=== PATIENT | female | born 1950 | race Caucasian/White ===

== ENCOUNTER 2017-03-08 17:28 | Inpatient (IN) ==
[2017-03-08] MEDS ORDERED: VECURONIUM 10 MG VIAL IV ONE (17:32)
[2017-03-08] MEDS ORDERED: VECURONIUM 10 MG VIAL IV STA (17:41)
--- NOTE | 2017-03-08 18:01 | Emergency Department Note ---
Arrival - Arrival Chief Complaint: Overdose ED Nursing Triage Note: pt had been fighting with boyfriend for the last day and half. pt was found today with 2 large bottles of wine empty and a large bottle of norcos with half missing. ems intubated pt with a 7.0 et tube 22 at lip Mode of Arrival: Stretcher Limitations: Altered Mental Status Source: EMS Time Seen by Provider: 03/08/17 17:50 - History of Present Illness HPI Narrative: The patient was apparently found unresponsive by her . There were 3 empty bottles of wine and it appears she also took at least 45 [place] tens. Apparently they have been fighting for the past couple of days. She has a history of prior suicidal ideation but no actual attempts known. EMS found patient with agonal respirations and unresponsive. She was intubated at the scene. Two doses of Narcan were given. The patient is on the ventilator when I see her. Allergies/Adverse Reactions: Allergies Allergy/AdvReac Type Severity Reaction Status Date / Time No Known Allergies Allergy Unverified 03/08/17 18:26 Review of System - Review of System ROS unobtainable: due to mental status Medical,Surgical,& Family Hx - Medical History Psychological: History of: Anxiety Disorders, Depression - Social History Smoking Status: Unknown if ever smoked Frequency of Alcohol Use: Unknown Type of Drug Use: Unknown Exam Physical Examination: GENERAL: Unresponsive. On ventilator. HEENT: Normocephalic and atraumatic. PERRLA. There is no nasal drainage. No pharyngeal erythema or exudate. [address] 22 at the lips. NECK: Normal inspection. Supple. No lymphadenopathy. LUNGS: On ventilator. Lung sounds clear and equal bilaterally. HEART: Regular rate and rhythm. ABDOMEN: Soft, nondistended with normal bowel sounds. SKIN: Color normal. Warm and dry. EXTREMITIES: No obvious deformity or trauma. No pedal edema. NEUROLOGICAL/PSYCHIATRIC: Unresponsive, on ventilator. Vital Signs: Vital Signs Temperature 97.0 F L 03/08/17 17:38 Pulse Rate 83 03/08/17 17:38 Respiratory Rate 10 L 03/08/17 18:20 Blood Pressure 102/61 03/08/17 17:38 O2 Sat by Pulse Oximetry 99 03/08/17 17:29 Course - Reevaluation(s) Reevaluation #1: The patient was discussed with the hospitalist service who will see her and admit. All lab work is pending. Time: 18:00 Results - Labs CBC & BMP: 03/08/17 17:55 03/08/17 17:55 Lab Results: I have reviewed the patients labs Labs: Laboratory Tests 03/08/17 03/08/17 03/08/17 17:55 17:55 17:55 ABG pH ABG pCO2 ABG pO2 ABG HCO3 ABG Total CO2 ABG O2 Saturation ABG Base Excess FiO2 Troponin I < 0.015 Ur Specific [place] 1.008 Urine RBC <1 Urine WBC 1 Urine Opiates Screen Acetaminophen U Benzodiazepines Scrn Serum Alcohol 233 03/08/17 03/08/17 03/08/17 17:55 17:55 18:31 ABG pH 7.290 L ABG pCO2 45.8 ABG pO2 380.0 H ABG HCO3 20.7 ABG Total CO2 20.4 L ABG O2 Saturation 99.8 ABG Base Excess -4.5 L FiO2 100.00 Troponin I Ur Specific [place] Urine RBC Urine WBC Urine Opiates Screen Positive H Acetaminophen 54.4 H U Benzodiazepines Scrn Positive H Serum Alcohol - Impressions EKG shows a normal sinus rhythm at 78 with flipped T waves in V1 and V2. Chest x-ray shows an ET tube 2 cm above the isidra with chronic right hemidiaphragm elevation and mild atelectasis. CT of the head shows no acute cranial abnormality. Disposition Clinical Impression: Drug overdose, Suicide attempt by multiple drug overdose Disposition: Still a Patient Condition: Critical Time of Disposition: 18:56
--- NOTE | 2017-03-08 18:13 | Hospitalist History & Physical ---
Assessment and Plan (1) Drug overdose Status: Acute Assessment and plan: We will admit and hydrate and start mucomyst per pharmacy recommendation. We will aggressively hydrate for pressure support and monitor output carefully. It is unsure exactly how many pills were ingested. We will obtain serial acetaminophen levels and LFT for trends. Current Visit: Yes History of Present Illness Chief complaint: drug overdose History of present illness: This is a very unfortunate 66 year old female that presented to the ED this afternoon per EMS for an apparent intentional drug overdose. The patient arrived intubated per EMS. Per EMS report, the patient and her had be arguing for the past 2-3 days and had not spoken to each other. The had gone to [place] this morning; leaving her alone at home. He returned home this afternoon to find her lying in bed unresponsive surrounded by empty bottle of Ro[place] and 3 bottles of wine. The reported that he had recently filled his prescription of Rolette on Saturday and had not taken any of the pill. He reports a quantity of 90 pills; however only 10-15 pills were found per EMS. I spoke with the in great detail regarding the patient's past medical history. He reported that the patient has battled depression for most of her adult life. She recently started to experience lower back pain which greatly affected her mobility. He reported that she spends long hours each day in bed. He reports that she has no prior suicide attempts; however she has spoke in great detail about it in the past. She was intubated at the time of arrival. Her pupils were sluggish and pinpoint. Labs were obtained; her potassium was noted at 3.3, calcium at 7.4. Cardiac enzymes were obtained and noted at <0.015. A serum alcohol level was obtained which was noted at 233. Urine drug screen was positive for opiates and benzodiazepines. Acetaminophen level were noted at 54.4, CT brain revealed no acute intracranial process. After brief discussion with Dr. Macedo and Dr. Bennett , the patient will be admitted to the hospitalist service for continuation of care. She will be admitted to critical care. We will consult pulmonary to assist. Allergies Allergy/AdvReac Type Severity Reaction Status Date / Time No Known Allergies Allergy Unverified 03/08/17 18:26 Medical,Surgical,& Family Hx - Medical History Psychological: History of: Anxiety Disorders, Depression Musculoskeletal: History of: Musculoskeletal Problems (chronic lower back pain) - Social History Smoking Status: Unknown if ever smoked Frequency of Alcohol Use: Unknown Type of Drug Use: Unknown Marital Status: Lives With:: Spouse Functional capacity: independent ambulation ROS unobtainable: due to endotracheal tube Exam - Constitutional Vitals: Period Temp Pulse Resp BP Sys/Watson Pulse Ox Last 24 Hr 97.0 F-97.0 F 83-83 16-16 102-102/61-61 99 General appearance: normal weight - Head Head exam: Present: normal inspection, normocephalic, atraumatic - Eye Eye exam: Present: EOMI. Absent: conjunctival injection, nystagmus Pupils: Present: constricted - ENT ENT exam: Absent: normal exam, normal external ear exam, normal oropharynx - Neck Neck exam: Present: normal inspection. Absent: lymphadenopathy, meningismus, tenderness, thyromegaly - Respiratory Respiratory exam: Present: clear to auscultation bilaterally. Absent: rales, rhonchi, stridor, wheezes (intubated; 100% FIO2) - Cardiovascular Cardiovascular exam: Present: regular rate and rhythm. Absent: carotid bruit, diastolic murmur, gallop, JVD, rubs, systolic murmur - GI/Abdominal GI/Abdominal exam: Present: normal bowel sounds, soft - Extremities Exam Extremities exam: Present: normal inspection, normal capillary refill - Back Exam Back exam: Present: normal inspection - Neurological Exam Neurological exam: Present: altered, other (sedated; no purposeful response noted.) - Skin Skin exam: Present: normal color, dry Results - Labs CBC & BMP: 03/08/17 17:55 03/08/17 17:55
[2017-03-08 18:14] LABS: Basophils % 0.7 % (0.0-0.8); Eosinophils # 0.3 10*3/uL (0.0-0.87); Hematocrit 30.4 VOL% (35.7-47.0); Hemoglobin 9.7 GM/DL (12.0-16.0); Immature Granulocytes % 0.4 %; Immature Granulocytes Absolute 0.02 #; Lymphocytes # 1.8 10*3/uL (1.4-4.0); Lymphocytes % 33.1 % (21.3-54.2); Mean Corpuscular HGB Conc 31.9 GM/DL (32-36); Mean Corpuscular Hemoglobin 30 PG (27-34); Mean Corpuscular Volume 93.3 FL (87-102); Mean Platelet Volume 9.6 FL (9.6-12.0); Monocytes # 0.9 10*3/uL (0.11-0.8); Monocytes % 17.5 % (1.7-12.7); Neutrophils # 2.3 10*3/uL (1.4-7.4); Neutrophils % 43.3 % (38.7-73.9); Platelet Count 179 T/CUMM (130-400); Red Blood Count 3.26 MC/CUMM (3.8-5.5); Red Cell Distribution Width 15.3 % (9.3-17.3); White Blood Count 5.4 T/CUMM (4-12)
[2017-03-08 18:20] LABS: Apearance,Urine Slightly Hazy (Clear); Bacteria,Urine Occasional /HPF (Few); Bilirubin,Urine Negative (Negative); Blood, Urine Negative (Negative); Glucose,Urine (UA) Negative (Negative); Hyaline Casts,Urine 16 /LPF (0-3); Ketones,Urine Negative (Negative); Mucus,Urine Occasional /LPF (Occasional); Nitrite,Urine Negative (Negative); Protein,Urine Negative; RBC,Urine <1 /HPF (0-4); Squamous Epithelial Cell,Urine Occasional /HPF (0-10); Urine Color Yellow (Yellow); Urine Specific Gravity 1.008 (1.001-1.035); Urine Urobilinogen < 2.0 EU/DL (0.2-1.0); WBC,Urine 1 /HPF (0-6)
[2017-03-08 18:26] LABS: Barbiturates Screen,Urine Negative (Negative); Benzodiazepines Screen,Urine Positive (Negative); Cannabinoid Screen,Urine Negative (Negative); Opiate Screen,Urine Positive (Negative); Phencyclidine Screen,Urine Negative (Negative)
[2017-03-08 18:28] LABS: Alanine Aminotransferase 15 U/L (13-56); Albumin 2.9 G/DL (3.4-5.0); Alkaline Phosphatase 45 U/L (45-117); Aspartate Amino Transferase 15 U/L (0-37); Bilirubin,Total < 0.39 MG/DL (0.2-1.0); Blood Urea Nitrogen 6 MG/DL (7-18); Calcium 7.4 MG/DL (8.5-10.1); Glucose 73 MG/DL (74-106); Osmolality,Calculated 279.1 MOS/KG (273-304); Potassium 3.3 MMOL/L (3.5-5.1); Sodium 142 MMOL/L (136-145); Total Protein 5.1 G/DL (6.4-8.3); Troponin I Only < 0.015 NG/ML (0.00-0.045)
[2017-03-08] MEDS ORDERED: ACETYLCYSTEINE 20% 6,000 MG/30 ML VIAL PO ONE (18:32)
--- NOTE | 2017-03-08 18:35 | CT Report ---
Referring physician: George Macedo Exam: CT brain without contrast Date: March 08, 2017 Comparison: None Reason: Mental status change The patient is an Emergency Department patient on March 08, 2017. Technique: Axial images of the head were obtained without the use of contrast. Total DLP was 914.6 mGy*cm. Findings: There is mild generalized cerebral atrophy/volume loss and probable chronic microvascular ischemic change. No hydrocephalus or midline shift is present. There is no evidence of recent intracranial hemorrhage, abnormal mass effect or an acute infarction. No acute osseous process is seen. There is mild mucosal thickening within the ethmoid air cells and sphenoid sinuses. The mastoid air cells are clear. Secretions are seen within the posterior nasopharynx. Impression: 1. No acute intracranial process is identified. 2. Secretions within the posterior nasopharynx. The CT exam was performed using one or more of the following dose reduction techniques: Automated exposure control and adjustment of the mA and/or kV according to patient size. PROCEDURE INTERPRETED AT [facility] DEPARTMENT OF RADIOLOGY Final Report Signed by: Dr. Armani Sprague
[2017-03-08 18:36] LABS: ABG Base Excess -4.5 MMOL/L (-2.5-2.5); ABG HCO3 20.7 MMOL/L (20-26); ABG Oxygen Saturation 99.8 % (95-100); ABG PCO2 45.8 MM HG (35-48); ABG TCO2 20.4 MMOL/L (23-27); Pt O2 Delivery Device Ventilator
[2017-03-08 18:44] LABS: Alanine Aminotransferase 16 U/L (13-56); Alkaline Phosphatase 47 U/L (45-117); Aspartate Amino Transferase 19 U/L (0-37); Bilirubin,Indirect 0.3 MG/DL (0.0-1.0); Bilirubin,Total < 0.39 MG/DL (0.2-1.0); Total Protein 5.2 G/DL (6.4-8.3)
--- NOTE | 2017-03-08 18:44 | XRay Report ---
Referring Physician: George Macedo Exam: XR chest 1V portable Date: March 08, 2017 at 6:13 PM Reason: Intubated Comparison: Chest one view portable February 01, 2010 Findings: An endotracheal tube is in place with its distal tip at the level of the sternoclavicular junctions, projecting 2 cm above the isidra. The cardiac silhouette is upper normal in size. There is persistent mild elevation of the right hemidiaphragm and minimal atelectasis at the right lung base. No pneumothorax is identified. No acute osseous process is seen. Impression: 1. An endotracheal tube is in place as above. 2. There is persistent mild elevation of the right hemidiaphragm and minimal atelectasis at the right lung base. PROCEDURE INTERPRETED AT [facility] DEPARTMENT OF RADIOLOGY Final Report Signed by: Dr. Armani Sprague
[2017-03-08] MEDS ORDERED: ALBUTEROL 2.5 MG/3 ML NEB RESP TX PRN (19:18)
[2017-03-08] MEDS: SODIUM CHLORIDE 0.9% 1,000 ML IV SCH (19:40)
[2017-03-08] MEDS: PANTOPRAZOLE 40 MG VIAL IV SCH (19:44)
[2017-03-08] MEDS: ENOXAPARIN 40 MG/0.4 ML SYRINGE SUBCUT SCH (19:45)
[2017-03-08 20:25] LABS: Magnesium 1.8 MG/DL (1.8-2.4)
[2017-03-08] MEDS ORDERED: SODIUM CHLORIDE 0.9% 1,000 ML IV ONE ×2 (20:57→22:02)
[2017-03-08 21:36] LABS: Band Neutrophils 3 % (0-10); Eosinophils 4 % (0-10); Lymphocytes 31 % (20-55); Segmented Neutrophils 46 % (50-85); Total Cells Counted 100
[2017-03-08] MEDS ORDERED: PHENYLEPHRINE DRIP 40 MG/250 ML PREMIX IV ONE (22:01)
[2017-03-08] MEDS ORDERED: ATROPINE 1 MG/10 ML SYRINGE ONE (22:02)
[2017-03-08] MEDS ORDERED: ATROPINE 1 MG/10 ML SYRINGE IV PRN (22:02)
[2017-03-08] MEDS ORDERED: NOREPINEPHRINE 4 MG/4 ML VIAL IV ONE (22:19)
[2017-03-08] MEDS: NOREPINEPHRINE 8 MG in SODIUM CHLORIDE 0.9% 242 ML IV SCH (22:30)
[2017-03-09 01:25] LABS: Basophils % 0.5 % (0.0-0.8); Eosinophils # 0.1 10*3/uL (0.0-0.87); Hematocrit 28.3 VOL% (35.7-47.0); Immature Granulocytes % 0.5 %; Immature Granulocytes Absolute 0.03 #; Lymphocytes # 1.6 10*3/uL (1.4-4.0); Lymphocytes % 24.8 % (21.3-54.2); Mean Corpuscular HGB Conc 31.8 GM/DL (32-36); Mean Corpuscular Hemoglobin 30 PG (27-34); Mean Corpuscular Volume 94.3 FL (87-102); Mean Platelet Volume 9.7 FL (9.6-12.0); Monocytes # 0.7 10*3/uL (0.11-0.8); Neutrophils # 4.1 10*3/uL (1.4-7.4); Neutrophils % 62.2 % (38.7-73.9); Platelet Count 193 T/CUMM (130-400); Red Cell Distribution Width 15.7 % (9.3-17.3); White Blood Count 6.6 T/CUMM (4-12)
[2017-03-09 01:56] LABS: Alanine Aminotransferase 15 U/L (13-56); Albumin 2.6 G/DL (3.4-5.0); Alkaline Phosphatase 42 U/L (45-117); Aspartate Amino Transferase 22 U/L (0-37); Bilirubin,Total < 0.39 MG/DL (0.2-1.0); Blood Urea Nitrogen 4 MG/DL (7-18); Glucose 125 MG/DL (74-106); Magnesium 1.7 MG/DL (1.8-2.4); Osmolality,Calculated 285.7 MOS/KG (273-304); Potassium 3.7 MMOL/L (3.5-5.1); Sodium 145 MMOL/L (136-145); Total Protein 4.8 G/DL (6.4-8.3)
[2017-03-09 01:58] LABS: Alanine Aminotransferase 15 U/L (13-56); Albumin 2.5 G/DL (3.4-5.0); Alkaline Phosphatase 45 U/L (45-117); Aspartate Amino Transferase 24 U/L (0-37); Bilirubin,Direct < 0.10 MG/DL (0.0-0.20); Bilirubin,Indirect 0.9 MG/DL (0.0-1.0); Lactic Acid 3.8 MMOL/L (0.4-2.0); Total Protein 4.8 G/DL (6.4-8.3)
[2017-03-09 02:01] LABS: Ammonia 24 UMOL/L (11-32)
[2017-03-09] MEDS: ACETYLCYSTEINE 20% 6,000 MG/30 ML VIAL PO SCH ×6 (03:00→18:35)
[2017-03-09] MEDS: SODIUM CHLORIDE 0.9% 1,000 ML IV SCH ×3 (03:45→18:36)
[2017-03-09 04:40] LABS: ABG Base Excess -8.2 MMOL/L (-2.5-2.5); ABG HCO3 17.8 MMOL/L (20-26); ABG Oxygen Saturation 99.5 % (95-100); ABG PCO2 28.3 MM HG (35-48); ABG PH 7.364 (7.35-7.45); ABG TCO2 14.8 MMOL/L (23-27); Allen Test Positive; Pt O2 Delivery Device Ventilator
--- NOTE | 2017-03-09 05:51 | Event Note ---
Night hospitalist critical care note Notified of patient's hypotension soon after arriving to the ICU. She had no response to 1 L normal saline bolus. After blood pressure dropped to 60 systolic her heart rate dropped as well to the low 50s. Heart rate responded to total of 1 mg atropine. She remained hypotensive so she was started on levophed through peripheral IV. Her consented over the telephone for the placement of central and arterial lines. Procedure note: Procedure arterial line insertion. Location right femoral artery. Site chosen due to poorly palpable radial pulse. Under sterile conditions the right femoral artery was easily cannulated with a needle from standard kit with pulsatile blood flow returned. Unfortunately the guidewire would not easily advance through the needle. Different wires from different kits were attempted with the same result. In total there were 4 cannulations of the radial artery with the needle and all resulted in failure to pass a guidewire. Hemostasis was achieved and the procedure was aborted. By that time her blood pressure was in 100 systolic with the Levophed off. It was determined that there would be little benefit in continuing further efforts at the procedures at this time. During my time performing this procedure she still had not begun initiating breaths on the ventilator and was completely unresponsive off of sedation. Her was notified of the updates in her condition, his questions were encouraged and answered. Later in the night notified by nurse that patient was hypothermic to 93 rectal. Blood cultures are pending. Order placed for warming blanket and reflex TSH. She has a stable blood pressure on only 1 microgram of Levophed at this time and also with a normal heart rate. Critical care time 40 minutes.
[2017-03-09 05:53] LABS: Free T4 (Free Thyroxine) 1.4 NG/DL (0.76-1.46); Thyroid Stimulating Hormone 1.27 uIU/ml (0.358-3.74)
--- NOTE | 2017-03-09 06:59 | Pulmonology Consult Note ---
Assessment and Plan (1) On mechanically assisted ventilation Status: Acute Assessment and plan: The patient is stable on the ventilator at present has very good oxygenation. We will continue ventilatory support for now Current Visit: Yes (2) Suicide attempt by multiple drug overdose Status: Acute Assessment and plan: The patient did take significant amounts of narcotics and alcohol. She is completely unresponsive so far. Current Visit: Yes (3) Depression Status: Acute Assessment and plan: This was apparently an intentional ingestion. Current Visit: Yes (4) Chronic lower back pain Status: Acute Assessment and plan: The patient apparently is getting [place] for back pain. Current Visit: Yes History of Present Illness Chief complaint: Ventilator management History of present illness: Ms. Loja is a 66 year old white female that came in last night on the ventilator after multiple drug overdoses. The found her at home unresponsive. She had an empty bottle of [place] with 3 empty bottles of wine. She may have taken as many as 60 or 70 [place] tablets. She was also found to have benzodiazepines in her system. The patient apparently has a history of depression in the past. She has now completely obtunded on the ventilator in the ICU. She did have bouts of hypotension requiring Levophed and fluids. She has very good oxygenation at present. She has no history of previous lung problems. Allergies Allergy/AdvReac Type Severity Reaction Status Date / Time No Known Allergies Allergy Unverified 03/08/17 18:26 ROS unobtainable: due to endotracheal tube (She is unable to give any history at present.) Exam (Pulmonay) H&P - Constitutional Vitals: Period Temp Pulse Resp BP Sys/Watson Pulse Ox Last 24 Hr 93.0 F-97.6 F 51-72 10-16 68-159/47-103 97-100 General appearance: normal weight, no acute distress (Patient is completely unresponsive on the ventilator at present.) - Head Head exam: Present: normal inspection, normocephalic - Eye Eye exam: Present: EOMI. Absent: scleral icterus Pupils: Present: constricted - ENT ENT exam: Present: normal exam, other (ET tube is in good position) - Neck Neck exam: Absent: lymphadenopathy, thyromegaly - Respiratory Respiratory exam: Present: clear to auscultation bilaterally. Absent: rhonchi, wheezes - Cardiovascular Cardiovascular exam: Present: regular rate and rhythm. Absent: gallop, systolic murmur - GI/Abdominal GI/Abdominal exam: Present: hypoactive bowel sounds, soft. Absent: organomegaly , tenderness - Extremities Exam Extremities exam: Absent: calf tenderness, edema - Neurological Exam Neurological exam: Present: altered (The patient is not responding so far) - Skin Skin exam: Present: warm, dry Medical,Surgical,& Family Hx - Medical History Psychological: History of: Anxiety Disorders, Depression Musculoskeletal: History of: Back/Neck Problems, Musculoskeletal Problems ( chronic lower back pain) - Social History Smoking Status: Unknown if ever smoked Frequency of Alcohol Use: Unknown Type of Drug Use: Unknown Results - Labs CBC & BMP: 03/09/17 01:12 03/09/17 01:12 Labs: PO2 is 202 with a PCO2 of 28 and a pH of 7.36 - Diagnostic Findings Procedure: Chest x-ray: image reviewed by me, report reviewed by me (Chest x- ray is clear) Quality Measures - VTE Contraindication to Pharmacological VTE Prophylaxis: High Risk of Bleeding
--- NOTE | 2017-03-09 09:14 | XRay Report ---
Referring Physician: MATHEW Christensen Exam: XR chest 1V portable Date: March 09, 2017 at 3:27 AM Reason: Shortness of breath Comparison: Chest one view portable March 08, 2017 Findings: An endotracheal tube and feeding tube are again in place. The cardiac silhouette is normal in size. There are scattered perihilar and bibasilar opacities, mainly on the right. This likely represents atelectasis. No pneumothorax is identified, but there may be minimal right pleural fluid. The osseous structures appear stable. Impression: There are scattered perihilar and bibasilar opacities, most prominent on the right. This likely represents atelectasis. This is similar to before when considering slight differences in patient positioning. PROCEDURE INTERPRETED AT [facility] DEPARTMENT OF RADIOLOGY Final Report Signed by: Dr. Armani Sprague
[2017-03-09] MEDS ORDERED: MAGNESIUM SULF RIDER 2 GM in PREMIX 1 EACH IV PRN (09:58)
[2017-03-09] MEDS ORDERED: MAGNESIUM SULF RIDER 4 GM in PREMIX 1 EACH IV PRN (09:58)
--- NOTE | 2017-03-09 09:58 | Hospitalist Progress Note ---
Assessment and Plan - Time spent with patient Time spent with patient: Greater than 30 minutes (critical care time 38 min) (1) Suicide attempt by multiple drug overdose Status: Acute Assessment and plan: Remains unresponsive this am. It is suspected that pt took an unspecified number of [place], Ambien, and ETOH. Difficult to know at this point if her unresponsiveness is from lingering effects of meds or otherwise. Will consider EEG, Neurology consult and further investigation in another 24 hrs if she does not begin to awaken. Acetaminophen elevated; on prophylactic mucomyst. Will address psychiatric issues when medically stable. Current Visit: Yes (2) On mechanically assisted ventilation Status: Acute Assessment and plan: Weaning as tolerated. No spontaneous breathing over vent thus far. Current Visit: Yes (3) Depression Status: Acute Current Visit: Yes Hospitalist: Subjective Interval history: Admitted yesterday evening after intentional overdose. Remains intubated on mechanical ventilation this am. Not requiring sedation. No spontaneous movements or breathing over vent for now. Exam - Constitutional Vitals: Period Temp Pulse Resp BP Sys/Watson Pulse Ox Last 24 Hr 93.0 F-97.8 F 51-74 10-16 68-159/47-103 97-100 General appearance: other Exam: Unresponsive on vent. ETT and NGT in place - Head Head exam: Present: normal inspection - Eye Eye exam: Present: other (pt attempts to close eyes and resist exam) Pupils: Present: THALIA - Neck Neck exam: Present: normal inspection. Absent: lymphadenopathy - Respiratory Respiratory exam: Present: clear to auscultation bilaterally - Cardiovascular Cardiovascular exam: Present: regular rate and rhythm - GI/Abdominal GI/Abdominal exam: Present: normal bowel sounds - Extremities Exam Extremities exam: Present: normal inspection - Neurological Exam Neurological exam: Present: other (unresponsive (outside of attempt to close eyes during exam)) - Psychiatric Psychiatric exam: Present: other (UTO) - Skin Skin exam: Present: normal color, warm, dry Results - Labs CBC & BMP: 03/09/17 01:12 03/09/17 01:12 Quality Measures - VTE Contraindication to Pharmacological VTE Prophylaxis: High Risk of Bleeding
[2017-03-09 10:22] LABS: Alanine Aminotransferase 19 U/L (13-56); Albumin 2.3 G/DL (3.4-5.0); Alkaline Phosphatase 43 U/L (45-117); Aspartate Amino Transferase 20 U/L (0-37); Bilirubin,Direct < 0.10 MG/DL (0.0-0.20); Bilirubin,Indirect 0.3 MG/DL (0.0-1.0); Bilirubin,Total < 0.39 MG/DL (0.2-1.0); Total Protein 4.5 G/DL (6.4-8.3)
[2017-03-09 13:18] LABS: Alanine Aminotransferase 18 U/L (13-56); Albumin 2.3 G/DL (3.4-5.0); Alkaline Phosphatase 40 U/L (45-117); Aspartate Amino Transferase 19 U/L (0-37); Bilirubin,Indirect 0.3 MG/DL (0.0-1.0); Bilirubin,Total < 0.39 MG/DL (0.2-1.0); Total Protein 4.3 G/DL (6.4-8.3)
--- NOTE | 2017-03-09 15:06 | EKG Report ---
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
[2017-03-09 20:40] LABS: Alanine Aminotransferase 17 U/L (13-56); Albumin 2.2 G/DL (3.4-5.0); Alkaline Phosphatase 46 U/L (45-117); Aspartate Amino Transferase 19 U/L (0-37); Bilirubin,Direct < 0.10 MG/DL (0.0-0.20); Bilirubin,Indirect 0.8 MG/DL (0.0-1.0); Total Protein 4.4 G/DL (6.4-8.3)
[2017-03-09] MEDS: PANTOPRAZOLE 40 MG VIAL IV SCH (20:40)
[2017-03-09] MEDS: ENOXAPARIN 40 MG/0.4 ML SYRINGE SUBCUT SCH (20:40)
[2017-03-09] MEDS: MIDAZOLAM 100 MG in SODIUM CHLORIDE 0.9% 80 ML IV SCH (21:07)
[2017-03-10] MEDS: ACETYLCYSTEINE 20% 6,000 MG/30 ML VIAL PO SCH ×7 (00:53→23:42)
[2017-03-10] MEDS: MIDAZOLAM 100 MG in SODIUM CHLORIDE 0.9% 80 ML IV SCH (03:07)
[2017-03-10 04:14] LABS: ABG Base Excess -6.7 MMOL/L (-2.5-2.5); ABG HCO3 16.6 MMOL/L (20-26); ABG Oxygen Saturation 98.8 % (95-100); ABG PCO2 26.4 MM HG (35-48); ABG PH 7.417 (7.35-7.45); ABG TCO2 17.4 MMOL/L (23-27); Pt O2 Delivery Device Ventilator
[2017-03-10] MEDS ORDERED: PROPOFOL 1,000 MG/100 ML BOTTLE IV ONE (04:41)
[2017-03-10] MEDS: NOREPINEPHRINE 8 MG in SODIUM CHLORIDE 0.9% 242 ML IV SCH ×2 (04:48→23:39)
[2017-03-10] MEDS: PROPOFOL 1,000 MG/100 ML BOTTLE IV SCH ×2 (04:49→16:30)
[2017-03-10 05:54] LABS: Albumin 2.4 G/DL (3.4-5.0); Bilirubin,Direct 0.1 MG/DL (0.0-0.20); Bilirubin,Indirect 1.1 MG/DL (0.0-1.0); Bilirubin,Total 1.2 MG/DL (0.2-1.0); Total Protein 4.6 G/DL (6.4-8.3)
--- NOTE | 2017-03-10 06:59 | Pulmonology Progress Note ---
Pulmonary - PN: Subj Interval history: The patient is a 66-year-old that has been depressed and took about 60 Otter tablets and drank 3 bottles of wine along with some benzodiazepines. She had to be intubated has been on the ventilator. Apparently last night she finally woke up and has been moving everything fairly well. Her blood pressure has been better and she is off Levophed now. She actually required some Diprivan to be started. Her oxygenation is okay and her chest x-ray is clear. She should be able to come off the ventilator once everything has cleared her system. Exam (Progress Note) - Constitutional Vitals: Period Temp Pulse Resp BP Sys/Watson Pulse Ox Last 24 Hr 97.8 F-99.3 F 63-99 12-17 80-162/44-92 97-100 Exam: General appearance: normal weight, no acute distress (Patient is sedated now but much more responsive. She is stable on the ventilator.) - Head Head exam: Present: normal inspection, normocephalic - Eye Eye exam: Present: EOMI. Absent: scleral icterus Pupils: Present: constricted - ENT ENT exam: Present: normal exam, other (ET tube is in good position) - Neck Neck exam: Absent: lymphadenopathy, thyromegaly - Respiratory Respiratory exam: Present: clear to auscultation bilaterally. Absent: rhonchi, wheezes - Cardiovascular Cardiovascular exam: Present: regular rate and rhythm. Absent: gallop, systolic murmur - GI/Abdominal GI/Abdominal exam: Present: hypoactive bowel sounds, soft. Absent: organomegaly , tenderness - Extremities Exam Extremities exam: Absent: calf tenderness, edema - Neurological Exam Neurological exam: Present: The patient moves her extremities and did wake up fairly well. - Skin Skin exam: Present: warm, dry Results - Labs CBC & BMP: 03/09/17 01:12 03/09/17 01:12 Labs: Her PO2 is 135 with a PCO2 of 26 and a pH of 7.41 - Diagnostic Findings Procedure: Chest x-ray: image reviewed by me, report reviewed by me (Chest x- ray looks clear.) Assessment and Plan (1) On mechanically assisted ventilation Status: Acute Assessment and plan: The patient is stable on the ventilator at present and her chest x-ray is clear and her oxygenation is better. Will try CPAP today . Current Visit: Yes (2) Suicide attempt by multiple drug overdose Status: Acute Assessment and plan: The patient did take significant amounts of narcotics and alcohol. She is waking up a little bit now. Current Visit: Yes (3) Depression Status: Acute Assessment and plan: This was apparently an intentional ingestion. Current Visit: Yes (4) Chronic lower back pain Status: Acute Assessment and plan: The patient apparently is getting Otter for back pain. Current Visit: Yes
[2017-03-10 08:05] LABS: Alanine Aminotransferase 16 U/L (13-56); Albumin 2.1 G/DL (3.4-5.0); Alkaline Phosphatase 51 U/L (45-117); Aspartate Amino Transferase 20 U/L (0-37); Bilirubin,Direct < 0.10 MG/DL (0.0-0.20); Bilirubin,Indirect 0.3 MG/DL (0.0-1.0); Bilirubin,Total < 0.39 MG/DL (0.2-1.0); Total Protein 4.3 G/DL (6.4-8.3)
[2017-03-10] MEDS: SODIUM CHLORIDE 0.9% 1,000 ML IV SCH (09:14)
--- NOTE | 2017-03-10 09:17 | Hospitalist Progress Note ---
Assessment and Plan - Time spent with patient Time spent with patient: Greater than 30 minutes (1) Suicide attempt by multiple drug overdose Status: Acute Assessment and plan: intentional OD with [place], Ambien and ETOH. Sedating effect resolved last pm and pt became much more awake and alert. Plan for further psychiatric eval once she is liberated from vent and medically stable. Mucomyst completed per protocol for potential acetaminophen toxicity. Current Visit: Yes (2) On mechanically assisted ventilation Status: Acute Assessment and plan: spontaneous breathing trial today. Anticipate liberation from vent soon now that sedation from OD is resolving. Current Visit: Yes (3) Depression Status: Acute Current Visit: Yes Hospitalist: Subjective Interval history: Pt became much more awake and alert last pm. Has required addition of restraints and sedation with propfol. Exam - Constitutional Vitals: Period Temp Pulse Resp BP Sys/Watson Pulse Ox Last 24 Hr 99 F-99.3 F 72-99 12-17 80-162/44-92 97-100 General appearance: no acute distress (sedated on vent. awakens to touch. follows simple commands) - Head Head exam: Present: normocephalic, atraumatic - Eye Eye exam: Present: EOMI. Absent: conjunctival injection, scleral icterus Pupils: Present: THALIA - ENT ENT exam: Present: other (ETT and NGT in place) - Neck Neck exam: Present: normal inspection. Absent: lymphadenopathy, meningismus - Respiratory Respiratory exam: Present: clear to auscultation bilaterally. Absent: accessory muscle use, rales, rhonchi, wheezes - Cardiovascular Cardiovascular exam: Present: regular rate and rhythm - GI/Abdominal GI/Abdominal exam: Present: normal bowel sounds. Absent: distended, guarding, tenderness - Extremities Exam Extremities exam: Present: normal inspection, normal capillary refill, full ROM - Neurological Exam Neurological exam: Present: other (sedated on vent) - Psychiatric Psychiatric exam: Present: other (UTO) - Skin Skin exam: Present: normal color, warm, dry Results - Labs CBC & BMP: 03/09/17 01:12 03/09/17 01:12 Quality Measures - VTE Contraindication to Pharmacological VTE Prophylaxis: High Risk of Bleeding
[2017-03-10] MEDS: DEXTROSE 5% NACL 0.45% 1,000 ML IV SCH ×2 (09:35→23:03)
[2017-03-10 13:08] LABS: Albumin 2.3 G/DL (3.4-5.0); Bilirubin,Direct 0.1 MG/DL (0.0-0.20); Bilirubin,Indirect 0.4 MG/DL (0.0-1.0); Bilirubin,Total 0.5 MG/DL (0.2-1.0); Total Protein 4.4 G/DL (6.4-8.3)
[2017-03-10] MEDS: PANTOPRAZOLE 40 MG VIAL IV SCH (21:16)
[2017-03-10] MEDS: ENOXAPARIN 40 MG/0.4 ML SYRINGE SUBCUT SCH (21:17)
[2017-03-11] MEDS: PROPOFOL 1,000 MG/100 ML BOTTLE IV SCH ×2 (01:02→05:43)
[2017-03-11] MEDS: ACETYLCYSTEINE 20% 6,000 MG/30 ML VIAL PO SCH ×5 (03:16→14:57)
[2017-03-11 03:42] LABS: ABG Base Excess -8.8 MMOL/L (-2.5-2.5); ABG HCO3 17.3 MMOL/L (20-26); ABG Oxygen Saturation 98.4 % (95-100); ABG PCO2 25.2 MM HG (35-48); ABG PH 7.387 (7.35-7.45); Allen Test Positive; Pt O2 Delivery Device Ventilator
[2017-03-11 05:03] LABS: Basophils % 0.3 % (0.0-0.8); Eosinophils # 0.2 10*3/uL (0.0-0.87); Eosinophils % 1.9 % (0.00-10.9); Hematocrit 26.2 VOL% (35.7-47.0); Immature Granulocytes % 0.4 %; Immature Granulocytes Absolute 0.04 #; Lymphocytes # 1.3 10*3/uL (1.4-4.0); Lymphocytes % 12.2 % (21.3-54.2); Mean Corpuscular HGB Conc 34.4 GM/DL (32-36); Mean Corpuscular Hemoglobin 29 PG (27-34); Mean Corpuscular Volume 85.6 FL (87-102); Mean Platelet Volume 9.6 FL (9.6-12.0); Monocytes # 1.2 10*3/uL (0.11-0.8); Monocytes % 11.4 % (1.7-12.7); Neutrophils % 73.8 % (38.7-73.9); Platelet Count 175 T/CUMM (130-400); Red Blood Count 3.06 MC/CUMM (3.8-5.5); Red Cell Distribution Width 15.8 % (9.3-17.3); White Blood Count 10.8 T/CUMM (4-12)
[2017-03-11 05:41] LABS: Calcium 6.2 MG/DL (8.5-10.1); Magnesium 1.9 MG/DL (1.8-2.4); Osmolality,Calculated 286.7 MOS/KG (273-304); Potassium 2.6 MMOL/L (3.5-5.1)
[2017-03-11] MEDS: POTASSIUM CHLORIDE RIDER 10 MEQ in PREMIX 1 EACH IV PRN ×3 (06:01→07:59)
--- NOTE | 2017-03-11 07:39 | Pulmonology Progress Note ---
Pulmonary - PN: Subj Interval history: The patient is a 66-year-old that has been depressed and took about 60 [place] tablets and drank 3 bottles of wine along with some benzodiazepines. She had to be intubated has been on the ventilator. Apparently last night she finally woke up and has been moving everything fairly well. Her blood pressure has been better and she is off Levophed now. She actually required some Diprivan to be started. Her oxygenation is okay and her chest x-ray is clear. She did some CPAP yesterday and she is responding a little better. Will try to extubate her today. Exam (Progress Note) - Constitutional Vitals: Period Temp Pulse Resp BP Sys/Watson Pulse Ox Last 24 Hr 98.4 F-100.2 F 81-109 10-25 119-148/63-95 95-100 Exam: General appearance: normal weight, no acute distress (Patient is sedated now but much more responsive. She is stable on the ventilator.) - Head Head exam: Present: normal inspection, normocephalic - Eye Eye exam: Present: EOMI. Absent: scleral icterus Pupils: Present: constricted - ENT ENT exam: Present: normal exam, other (ET tube is in good position) - Neck Neck exam: Absent: lymphadenopathy, thyromegaly - Respiratory Respiratory exam: Present: clear to auscultation bilaterally. She is moving air well without any rales or wheezing. - Cardiovascular Cardiovascular exam: Present: regular rate and rhythm. Absent: gallop, systolic murmur - GI/Abdominal GI/Abdominal exam: Present: hypoactive bowel sounds, soft. Absent: organomegaly , tenderness - Extremities Exam Extremities exam: Absent: calf tenderness, edema - Neurological Exam Neurological exam: Present: The patient moves her extremities and did wake up fairly well. - Skin Skin exam: Present: warm, dry Results - Labs CBC & BMP: 03/11/17 04:38 03/11/17 04:38 Labs: PO2 is 123 with a PCO2 of 25 and a pH of 7.38 - Diagnostic Findings Procedure: Chest x-ray: image reviewed by me, report reviewed by me (Chest x- ray is clear) Assessment and Plan (1) On mechanically assisted ventilation Status: Acute Assessment and plan: The patient is stable on the ventilator at present and her chest x-ray is clear and her oxygenation is better. She did CPAP fairly well yesterday. We will go ahead and extubate today. Current Visit: Yes (2) Suicide attempt by multiple drug overdose Status: Acute Assessment and plan: The patient did take significant amounts of narcotics and alcohol. She is waking up a little bit now. Current Visit: Yes (3) Depression Status: Acute Assessment and plan: This was apparently an intentional ingestion. She will need a psychiatry evaluation Current Visit: Yes (4) Chronic lower back pain Status: Acute Assessment and plan: The patient apparently is getting [place] for back pain. Current Visit: Yes
--- NOTE | 2017-03-11 08:19 | XRay Report ---
Portable chest Date: 03/11/2017 Clinical history: Ventilator management Comparison: 03/09/2017 Technique: Portable AP sitting chest Findings: The heart is normal in size with stable support devices. Persistent minimal relative elevation of the right hemidiaphragm with progressive atelectasis at the lung bases. Small right pleural effusion. Stable mediastinum and osseous structures. Impression: Minimally progressive atelectasis at the lung bases with small right pleural effusion. Stable supportive devices. PROCEDURE INTERPRETED AT [facility] DEPARTMENT OF RADIOLOGY Final Report Signed by: Dr. Denise Caputo
[2017-03-11] MEDS ORDERED: LACTULOSE 20 GM/30 ML UDCUP PO PRN (08:34)
[2017-03-11] MEDS ORDERED: POTASSIUM CHLORIDE 20 MEQ/15 ML UDCUP PER TUBE ONE ×2 (08:37→10:00)
[2017-03-11] MEDS: PIPERACILLIN/TAZOBACTAM 3,375 MG in SODIUM CHLORIDE 0.9% 100 ML IV SCH ×2 (09:25→17:17)
[2017-03-11] MEDS: ALBUTEROL/IPRATROPIUM 3 ML NEB RESP TX SCH ×4 (10:31→23:34)
--- NOTE | 2017-03-11 11:36 | Physician Query Form ---
CLICK EDIT DOCUMENT TO SELECT QUERY ANSWER --> OK --> SIGN Echo Preston RN Clinical [place] [facility] W) [phone] (f) [phone] [email or web address]: Make your selection(s) from the choices in EACH section by typing an "x" and enter comments in the comment section. Please use your independent medical judgment in providing your response. This request does not imply that any particular answer is desired or expected. CLINICAL INDICATORS: (Providers should not edit this section) Pt. admitted with Suicide attempt by multiple drug overdose. Based on documentation of "EMS found patient with agonal respirations and unresponsive. She was intubated at the scene". If possible, please further clarify the type and acuity of respiratory diagnosis : ACUITY: (x) Acute ( ) Chronic ( ) Acute on Chronic TYPE: ( x Respiratory failure with hypoxia ( ) Respiratory failure with hypercapnia ( ) Respiratory Arrest ( ) Respiratory Insufficiency ( ) ARDS (Adult/Acute Respiratory Distress Syndrome) ( ) Other, please specify: ( ) Clinically unable to determine Recognized criteria for respiratory failure PH <7.35 or >7.45 PO2 <60 PCO2 >50 RR >24 O2 Sat <90% on RA or <95% on O2 Use of accessory muscles Unable to speak in full sentences Intubation is not required COMMENTS: Use of terms such as suspected, likely, or probable (associated with a specific diagnosis that is being evaluated, monitored, or treated as if it exists) are acceptable and can be restated in the discharge summary if not ruled out. MTDD
[2017-03-11] MEDS: DEXTROSE 5% NACL 0.45% 1,000 ML IV SCH (12:53)
--- NOTE | 2017-03-11 13:29 | Hospitalist Progress Note ---
Assessment and Plan (1) Acute respiratory failure Status: Acute Assessment and plan: Status post extubation, will start Zosyn. Current Visit: Yes (2) Suicide attempt by multiple drug overdose Status: Acute Assessment and plan: [facility] Sitter in room. Current Visit: Yes (3) Aspiration into airway Status: Acute Assessment and plan: Started Zosyn, send sputum for Gram stain and culture. Duo nebs ordered Current Visit: Yes (4) Depression Status: Acute Assessment and plan: no home meds recorded Current Visit: Yes (5) Chronic lower back pain Status: Acute Assessment and plan: no pain meds for now Current Visit: Yes Hospitalist: Subjective Interval history: Patient sounds real junky in her right and left lungs but worse on the right. She was extubated successfully. Still groggy and agitated and trying to get out of bed. She does have sitter at the bedside. She is extremely weak and we will have PT eval. We have [facility] come [facility] Exam - Constitutional Vitals: Period Temp Pulse Resp BP Sys/Watson Pulse Ox Last 24 Hr 98.4 F-100.2 F 90-110 14-33 117-148/60-94 92-100 Exam: Heart Rate-[tachy] Lungs-[CTAB] GI-[+bs soft, NT] Ext-[no edema] Neuro [Motor 5/5], [alert and oriented times 2] psych [agitated mood and affect] General [no acute distress] Results - Labs CBC & BMP: 03/11/17 04:38 03/11/17 04:38 Lab Results: I have reviewed the past 24 hour labs - Diagnostic Findings Procedure: Chest x-ray: report reviewed by me (atelectasis and right pleural effusion) Quality Measures - VTE Contraindication to Pharmacological VTE Prophylaxis: High Risk of Bleeding
[2017-03-11] MEDS: PANTOPRAZOLE 40 MG VIAL IV SCH (20:30)
[2017-03-11] MEDS: ENOXAPARIN 40 MG/0.4 ML SYRINGE SUBCUT SCH (20:30)
[2017-03-12] MEDS: PIPERACILLIN/TAZOBACTAM 3,375 MG in SODIUM CHLORIDE 0.9% 100 ML IV SCH ×2 (00:52→10:04)
[2017-03-12] MEDS: DEXTROSE 5% NACL 0.45% 1,000 ML IV SCH (02:30)
[2017-03-12] MEDS: ALBUTEROL/IPRATROPIUM 3 ML NEB RESP TX SCH ×4 (02:43→14:30)
[2017-03-12] MEDS: PROPOFOL 1,000 MG/100 ML BOTTLE IV SCH (04:21)
--- NOTE | 2017-03-12 07:41 | Pulmonology Progress Note ---
Pulmonary - PN: Subj Interval history: The patient is a 66-year-old that has been depressed and took about 60 [place] tablets and drank 3 bottles of wine along with some benzodiazepines. She had to be intubated has been on the ventilator. Apparently last night she finally woke up and has been moving everything fairly well. Her blood pressure has been better and she is off Levophed now. She actually required some Diprivan to be started. Her oxygenation is okay and her chest x-ray is clear. She came off the ventilator okay yesterday and has not had any significant respiratory problems. She is at very agitated at times. She has required sitters. Her oxygenation has been okay and her vital signs have been stable. She does have some severe mental problems. Exam (Progress Note) - Constitutional Vitals: Period Temp Pulse Resp BP Sys/Watson Pulse Ox Last 24 Hr 98.8 F-100.2 F 99-122 19-284 99-152/48-94 24-99 Exam: General appearance: normal weight, no acute distress (Patient is talking some and looks reasonably comfortable.) - Head Head exam: Present: normal inspection, normocephalic - Eye Eye exam: Present: EOMI. Absent: scleral icterus Pupils: Present: constricted - ENT ENT exam: Present: normal exam - Neck Neck exam: Absent: lymphadenopathy, thyromegaly - Respiratory Respiratory exam: Present: She has good breath sounds bilaterally and is moving air fairly well. She does not have any wheezing now. She has some minimal rhonchi. - Cardiovascular Cardiovascular exam: Present: regular rate and rhythm. Absent: gallop, systolic murmur - GI/Abdominal GI/Abdominal exam: Present: hypoactive bowel sounds, soft. Absent: organomegaly , tenderness - Extremities Exam Extremities exam: Absent: calf tenderness, edema - Neurological Exam Neurological exam: Present: The patient does move around and gets very restless. - Skin Skin exam: Present: warm, dry Results - Labs CBC & BMP: 03/11/17 04:38 03/11/17 04:38 Assessment and Plan (1) On mechanically assisted ventilation Status: Acute Assessment and plan: The patient came off the ventilator okay and is breathing comfortably at present. Current Visit: Yes (2) Suicide attempt by multiple drug overdose Status: Acute Assessment and plan: The patient does have considerable confusion and agitation. She will need inpatient psychiatric care. Current Visit: Yes (3) Depression Status: Acute Assessment and plan: This was apparently an intentional ingestion. She will need a psychiatry evaluation Current Visit: Yes (4) Chronic lower back pain Status: Acute Assessment and plan: The patient apparently is getting [place] for back pain. Current Visit: Yes
[2017-03-12] MEDS ORDERED: DESITIN 4OZ/NYSTATIN 15 GRAM MIXTURE PASTE TOP SCH (09:00)
--- NOTE | 2017-03-12 09:19 | Hospitalist Progress Note ---
Assessment and Plan (1) Acute respiratory failure Status: Acute Assessment and plan: Status post extubation yesterday, cont Zosyn. Current Visit: Yes (2) Suicide attempt by multiple drug overdose Status: Acute Assessment and plan: [facility] will not take somebody who is actively suicidal. We have renewed her 72 hour hold she is clearly a danger to self and others. She reprints depressed and wanting to hurt yourself. We need her evaluated by a psychiatrist to release the hold. Current Visit: Yes (3) Aspiration into airway Status: Acute Assessment and plan: Chest x-ray looks good continue Zosyn for now Current Visit: Yes (4) Depression Status: Acute Assessment and plan: Restarted Effexor hold clonazepam. Current Visit: Yes (5) Chronic lower back pain Status: Acute Assessment and plan: no pain meds for now Current Visit: Yes Hospitalist: Subjective Interval history: Patient still actively suicidal and reports her does not love her anymore. We will renew the 72 hour hold as patient is a danger to herself and others. We are drawing labs this morning despite her refusal to let us draw labs. She is actively agitated but not confused. Her does not plan to court commit her. She has been very difficult for him at home. Exam - Constitutional Vitals: Period Temp Pulse Resp BP Sys/Watson Pulse Ox Last 24 Hr 98.8 F-100.2 F 99-122 16-284 99-152/48-88 24-99 Exam: Heart Rate-[tachy] Lungs-[CTAB] GI-[+bs soft, NT] Ext-[no edema] Neuro [Motor 5/5], [alert and oriented times 2] psych [agitated mood and affect] General [no acute distress] Results - Labs CBC & BMP: 03/11/17 04:38 03/11/17 04:38 Lab Results: I have reviewed the past 24 hour labs Quality Measures - VTE Contraindication to Pharmacological VTE Prophylaxis: High Risk of Bleeding
[2017-03-12] MEDS ORDERED: VENLAFAXINE XR 75 MG CAPSULE PO SCH (09:30)
[2017-03-12] MEDS ORDERED: POTASSIUM CHLORIDE 20 MEQ TABLET PO SCH (09:30)
[2017-03-12 10:15] LABS: Albumin 2.1 G/DL (3.4-5.0); Bilirubin,Total 0.8 MG/DL (0.2-1.0); Calcium 6.4 MG/DL (8.5-10.1); Osmolality,Calculated 291.6 MOS/KG (273-304); Total Protein 4.1 G/DL (6.4-8.3)
[2017-03-12 10:17] LABS: Potassium 2.3 MMOL/L (3.5-5.1)
--- NOTE | 2017-03-12 10:19 | Discharge Summary ---
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 Apparently patient had just had her [place] filled and had 90 tablets but only 10 remained in the bottle. Patient also drink a bottle of wine with the norco. Patient was unresponsive and intubated on arrival to the emergency room. Her serum alcohol level was 233. Her drug screen was positive for opiates and benzos. Her initial acetaminophen level was 45 but came down to 7.9. She received complete treatment with mucomyst. Patient intentionally overdosed because she felt that her did not love her anymore. Apparently she is very needy and he tends to her every wish and has done so for years. He has attended all visitations and has been there continuously since admission. Patient suffers from severe depression and has recently had her medications altered. Her believes this has contributed to her increasing depression. Patient had evidence of aspiration but was able to be completely weaned off the vent and extubated yesterday. Patient has remained emotional and has informed me that she still wants to hurt herself. [facility]. She is easily agitated and yells at anytime you touch her. Her reports she is usually not like that. Some of her emotion is due to drugs to completely clear her system. She is obviously a risk to herself and others and has been on a 72 hour hold. She has been accepted [facility] today and will be transferred there immediately. Her potassium was low today but was replaced. She is having problems with diarrhea after given lactulose yesterday at her 's request. I have discontinued her Zosyn but would recommend 5 more days of Augmentin. She has been doing well with clearance her secretions since extubation and her chest x- ray shows no clear evidence of pneumonia. She is mildly anemic but is stable and has not required any blood transfusion. Her liver enzymes have not been really elevated until today. GI recommends weekly monitoring with careful attention to any medication which may clear through the liver. - Time spent with patient Time with patient DS: Greater than 30 minutes (55 min) Diagnosis - Discharge Diagnosis (1) Acute respiratory failure Status: Acute (2) Suicide attempt by multiple drug overdose Status: Acute (3) Aspiration into airway Status: Acute (4) Depression Status: Acute (5) Chronic lower back pain Status: Acute Discharge Plan - Discharge Data Disposition: Disch/Xfer to Psych Hos Condition at Discharge: Stable Discharge Diet: heart healthy Activity: resume usual activities as tolerated Hygiene: no restrictions Weight Bearing at Discharge: full weight bearing - Discharge Medications New Amoxicillin/Clav Tab [Augmentin Tab] 875 mg PO BID #10 tablet Continue Venlafaxine HCl [Effexor XR] 150 mg PO DAILY Albuterol Sulfate [Ventolin HFA] 2 puff INH Q4-6H PRN PRN Reason: Shortness Of Breath/Wheezing Discontinued traZODone [Desyrel] 150 mg PO BEDTIME Cyclobenzaprine [Flexeril] 10 mg PO TID PRN PRN Reason: Muscle Pain Ergocalciferol (Vitamin D2) [Vitamin D2] 50,000 unit PO DAILY clonazePAM [Klonopin] 1 mg PO TID - Follow Up or Referral Follow Up: Austyn Leigh MD [Physician] - 2 Weeks (If liver enzymes remain elevated ) - Forms/Instructions Additional Discharge Instructions: weekly liver profile to monitor liver function Exam - Constitutional Vitals: Period Temp Pulse Resp BP Sys/Watson Pulse Ox Last 24 Hr 98.8 F-100.2 F 99-122 16-284 99-152/48-88 24-99 General appearance: normal weight, no acute distress - Respiratory Respiratory exam: Present: clear to auscultation bilaterally. Absent: rhonchi, wheezes - Cardiovascular Cardiovascular exam: Present: regular rate and rhythm. Absent: systolic murmur - GI/Abdominal GI/Abdominal exam: Present: normal bowel sounds, soft. Absent: tenderness - Extremities Exam Extremities exam: Present: normal inspection, normal capillary refill - Neurological Exam Neurological exam: Present: alert - Psychiatric Psychiatric exam: Present: agitated, depressed Discharge Results Procedures and tests throughout hospitalization: Pending Orders 03/08/17 19:48 Blood Culture Stat 03/11/17 15:35 Sputum Culture and Gram Stain Stat 03/12/17 09:23 CMP [Comprehensive Metabolic Panel] Stat 03/13/17 04:00 BMP [Basic Metabolic Panel] IN AM Comp Blood Count Auto Diff IN AM 03/14/17 04:00 BMP [Basic Metabolic Panel] IN AM Comp Blood Count Auto Diff IN AM Labs on day of discharge: Preliminary micro results at discharge 03/11/17 15:35 Sputum Culture - Preliminary Sputum Gram Positive Cocci 03/08/17 19:48 Blood Culture - Preliminary Blood No growth at 3 days 03/08/17 19:48 Blood Culture - Preliminary Blood No growth at 3 days DS: Provider Date of admission: 03/08/17 18:04 Primary care physician: . No PCP Attending physician on admission: Ash Bennett MD Consults: 03/08/17 19:18 Consult to Physician [CONS] Routine Comment: Consulting Provider: Anastacio Everett When should Consulting Provider be notified: Now 03/08/17 19:25 Consult to Pharmacy [CONS] Routine Reason for Pharmacy Consult: Adjust Meds Renal Funct 03/11/17 09:55 Consult to Case Mgmt/Social Srvs [CONS] Routine Reason for Case Mgmt/Social Srvs: Psychiatric Management Consult Comment: ASHLEY, PT EXTUBATED 03/11, HAVE THEM SEE ON 03/12 Discharging clinician: Daniela Pascual MD
[2017-03-12] MEDS: POTASSIUM CHLORIDE 20 MEQ TABLET PO SCH ×2 (11:33→12:58)
[2017-03-12 15:51] VITALS: BP 93/58
== END 2017-03-12 15:25 | DRG 917 ==
LOC: EDBD → EDUNIT# → N.ED 17:28 → N.EDINP 18:04 → SUATTDRO 18:04 → N.CC 18:53
PROVIDERS: ADMIT Internal Medicine; ATTEND Internal Medicine